=== PATIENT | female | born 1980 | race Two or more races ===

== ENCOUNTER 2017-04-25 06:15 | Outpatient (CLI) | payer OTHER ==
[~2017-04-25 06:15] MED LIST: GILTUSS TR TAB1 EACH PO; PROZAC40 MG; STRATTERA25 MG; ZYRTEC10 MG PO
== END 2017-04-25 06:47 | disposition home or self-care (01) ==
LOC: LAB 06:15
DX: Z34.01 Encounter for supervision of normal first pregnancy, first trimester (principal)

== ENCOUNTER 2017-04-25 08:42 | Outpatient (CLI) | payer OTHER | END 2017-04-25 09:12 | disposition home or self-care (01) | LOC: LAB 08:42 | DX: D50.8 Other iron deficiency anemias (principal) ==

== ENCOUNTER 2017-04-26 13:11 | Emergency (ER) | payer OTHER ==
[~2017-04-26] VITALS: Ht 157.5 cm; Wt 61.2 kg
== END 2017-04-26 23:11 | disposition home or self-care (01) ==
LOC: ER 13:11
DX: O26.891 Other specified pregnancy related conditions, first trimester (principal); Z3A.09 9 weeks gestation of pregnancy; J06.9 Acute upper respiratory infection, unspecified; Z34.81 Encounter for supervision of other normal pregnancy, first trimester

== ENCOUNTER 2017-06-27 06:12 | Outpatient (CLI) | payer OTHER | END 2017-06-27 06:45 | disposition home or self-care (01) | LOC: LAB 06:12 | DX: Z34.01 Encounter for supervision of normal first pregnancy, first trimester (principal) ==

== ENCOUNTER 2019-05-29 14:41 | Outpatient (CLI) | payer OTHER | END 2019-05-29 14:49 | disposition home or self-care (01) | LOC: RAD 14:41 | DX: R05 Cough (principal) ==

== ENCOUNTER 2019-10-09 10:14 | Outpatient (CLI) | payer OTHER | END 2019-10-09 10:29 | disposition home or self-care (01) | LOC: RAD 10:14 | PROVIDERS: ATTEND General Practice | DX: M25.562 Pain in left knee (principal); M25.511 Pain in right shoulder; M79.601 Pain in right arm; M25.521 Pain in right elbow; M79.631 Pain in right forearm; M79.641 Pain in right hand ==

== ENCOUNTER 2020-05-09 18:02 | Emergency (ER) | payer OTHER ==
[~2020-05-09] VITALS: Ht 157.5 cm; Wt 55.3 kg
== END 2020-05-09 20:21 | disposition home or self-care (01) ==
LOC: ER 18:02
DX: N20.0 Calculus of kidney (principal); N39.0 Urinary tract infection, site not specified; Z20.828 Contact with and (suspected) exposure to other viral communicable diseases

== ENCOUNTER 2020-05-27 13:28 | Emergency (ER) | payer OTHER ==
[~2020-05-27] VITALS: Ht 154.9 cm; Wt 54.0 kg
== END 2020-05-27 21:22 | disposition home or self-care (01) ==
LOC: ER 13:28
DX: M54.16 Radiculopathy, lumbar region (principal); N23 Unspecified renal colic

== ENCOUNTER → 2020-05-28 | Outpatient (CLI) | payer OTHER | END | disposition home or self-care (01) | LOC: MRI 07:55 | DX: M51.37 Other intervertebral disc degeneration, lumbosacral region (principal); M54.16 Radiculopathy, lumbar region | CPT/HCPCS: 72148 ==

== ENCOUNTER 2020-11-14 11:07 | Emergency (ER) | payer OTHER ==
[~2020-11-14] VITALS: Ht 154.9 cm; Wt 52.2 kg
[2020-11-14] MEDS ORDERED: LAMICTAL100 M1 PO (11:36)
[2020-11-14] MEDS ORDERED: CLORAZEPATE D3.75 MG PO (11:36)
[2020-11-14] MEDS ORDERED: ZYRTEC10 M3 PO (11:36)
[2020-11-14] MEDS ORDERED: CANNABIS (11:37)
== END 2020-11-14 16:37 | disposition home or self-care (01) ==
LOC: ER 11:07
DX: R51.9 Headache, unspecified (principal)

== ENCOUNTER → 2021-11-09 | Emergency (ER) | payer OTHER ==
[~2021-11-09] VITALS: Ht 157.5 cm; Wt 61.2 kg
[~2021-11-09] MED LIST changes: +CANNABIS; +CLORAZEPATE D3.75 MG PO; +KETO10TA2 PO; +LAMICTAL100 M1 PO; +NORFLEX100MG PO; +ZYRTEC10 M3 PO
== END | disposition home or self-care (01) ==
LOC: ER 19:39
DX: M54.50 Low back pain, unspecified (principal)